=== PATIENT | female | born 1995 | race American Indian/Alaskan Native ===

== ENCOUNTER 2016-09-07 15:07 | Emergency (ER) | payer SELFPAY ==
[2016-09-07 15:15] VITALS: BP 112/71
== END 2016-09-07 23:02 | disposition left against medical advice (07) ==
LOC: ED 15:07
DX: K13.79 Other lesions of oral mucosa (principal); Z53.21 Procedure and treatment not carried out due to patient leaving prior to being seen by health care provider

== ENCOUNTER 2017-03-03 14:34 | Emergency (ER) | payer SELFPAY ==
--- NOTE | 2017-03-03 15:32 | Emergency Department Report ---
Chief Complaint: Vaginal Bleeding Stated Complaint: POSSIBLE MISCARRIAGE Time Seen by Provider: 03/03/17 15:16 - HPI History of Present Illness: Patient is a 21 year-old who presents to ED complaining of vaginal bleeding 2 days. Patient states bleeding has worsened today. She states she has confirmed 2 weeks ago at a clinic patient states she does not recall her last was her period. She denies fevers/chills/nausea/vomiting/chest pain/shortness of breath or any other problems - ROS Review of Systems: As noted in HPI - Exam Vital Signs: Vital Signs 03/03/17 14:46 Temperature 99.3 F Pulse Rate 94 H Respiratory 16 Rate Blood Pressure 116/71 O2 Sat by Pulse 100 Oximetry Physical Exam: GENERAL: Alert and oriented x3, no apparent distress, Normal Gait, atraumatic. ABDOMEN: No organomegaly was noted,Positive bowel sounds, soft, and non- distended. . Nontender to palpation on all Quadrants, NO CVA tenderness. SKIN: Warm and dry, No lesions, No ulceration or induration present. MSE screening note: Focused history and physical exam performed. Due to findings the following was ordered: ED Medical Decision Making - Medical Decision Making Vaginal bleed protocol ordered. Patient's receiving by ED physician ED Disposition for MSE Condition: Stable
[2017-03-03 16:53] LABS: Bilirubin,Urine Negative (Negative); Ketones,Urine Negative (Negative)
[2017-03-03 16:54] LABS: Blood,Urine Moderate (Negative); Leukocyte Esterase,Urine Negative (Negative); Nitrite,Urine Negative (Negative); Protein,Urine <15 mg/dL mg/dL (Negative); Urobilinogen,Urine < 2.0 mg/dL (<2.0)
[2017-03-03 17:18] LABS: Basophils % (Auto) 0.9 % (0.0-1.8); Eosinophils % (Auto) 6.6 % (0.0-4.3); Hematocrit 38.8 % (30.3-42.9); Hemoglobin 12.6 gm/dl (10.1-14.3); Mean Corpuscular HGB Conc 33 % (30-34); Mean Corpuscular Hemoglobin 26 pg (28-32); Mean Corpuscular Volume 78 fl (79-97); Platelet Count 295 K/mm3 (140-440); Red Blood Count 4.95 M/mm3 (3.65-5.03); Red Cell Distribution Width 15.8 % (13.2-15.2)
[2017-03-03 18:15] LABS: Alanine Aminotransferase 12 units/L (7-56); Albumin/Globulin Ratio 1.4 %; Alkaline Phosphatase 85 units/L (35-129); Anion Gap 22 mmol/L; BUN/Creatinine Ratio 14; Blood Urea Nitrogen 7 mg/dL (7-17); Calcium 9.6 mg/dL (8.4-10.2); Carbon Dioxide 22 mmol/L (22-30); Chloride 98.4 mmol/L (98-107); Glucose 68 mg/dL (65-100); Potassium 3.7 mmol/L (3.6-5.0); Sodium 139 mmol/L (137-145); Total Protein 8.5 g/dL (6.3-8.2)
[2017-03-03] MEDS ORDERED: ZOFRAN ODT PO ONE (18:57)
[2017-03-03 19:27] VITALS: BP 114/58
[2017-03-03 19:46] LABS: Mucus,Urine FEW /HPF
--- NOTE | 2017-03-03 19:49 | Emergency Department Report ---
ED Female HPI - General Chief complaint: Vaginal Bleeding Stated complaint: POSSIBLE MISCARRIAGE Time Seen by Provider: 03/03/17 15:16 Source: patient Mode of arrival: Ambulatory Limitations: No Limitations - History of Present Illness Initial comments: 21-year-old female with a past smoker history of asthma presents to the hospital currently with complaints of vaginal spotting for several days it increased bleeding today. Positive moderate intermittent cramps without aggravating or alleviating factors. Patient states she had an ultrasound approximately 2.5 weeks ago that showed a 5 week 6 day IUP. Patient never followed up for her repeat visit. She denies nausea, vomiting, lightheadedness, chest pain, shortness of breath, or fever. This is her fourth . She has a history of one miscarriage, one earlier this year , and has one child. - Related Data Allergies Allergy/AdvReac Type Severity Reaction Status Date / Time No Known Allergies Allergy Unverified 09/07/16 15:15 ED Review of Systems ROS: Stated complaint: POSSIBLE MISCARRIAGE Other details as noted in HPI Comment: All other systems reviewed and negative Other: Constitutional: No fevers chills Eyes: No eye pain visual changes ENT: No ear pain or throat pain Neck: Denies pain Respiratory: Denies cough wheezing shortness of breath Cardiovascular: Denies chest pain, palpitations, syncope GI: Denies nausea, vomiting, diarrhea : Denies dysuria Musculoskeletal: Denies back pain, joint swelling Skin: Denies rash, lesions, erythema Neurologic: Denies headache, numbness, weakness Psychiatric: Denies suicidal ideation, hallucinations ED Past Medical Hx - Past Medical History Previous Medical History?: Yes Hx Asthma: Yes - Surgical History Past Surgical History?: No - Social History Smoking Status: Never Smoker Substance Use Type: Marijuana ED Physical Exam - General Limitations: No Limitations - Other Other exam information: General: No limitations, patient is alert in no acute distress Head exam: Atraumatic, normocephalic Eyes exam: Normal appearance ENT: Moist mucous membrane, normal oropharynx Neck exam: Normal inspection, full range of motion, no meningismus nontender Respiratory exam: Clear to auscultation bilateral, no wheezes, rales, crackles Cardiovascular: Normal rate and rhythm, normal heart sounds Abdomen: Soft, nondistended, and nontender, with normal bowel sounds, no rebound, or guarding Extremity: Full range of motion normal inspection no deformity Back: Normal Inspection, full range of motion, no tenderness Neurologic: Alert, oriented x3, cranial nerves intact, no motor or sensory deficit Psychiatric: normal affect, normal mood Skin: Warm, dry, intact ED Course Vital Signs 03/03/17 03/03/17 03/03/17 14:46 17:47 18:00 Temperature 99.3 F Pulse Rate 94 H 92 H Respiratory 16 24 Rate Blood Pressure 116/71 95/65 Blood Pressure [Right] O2 Sat by Pulse 100 100 100 Oximetry 03/03/17 03/03/17 03/03/17 18:15 18:30 18:48 Temperature Pulse Rate 102 H 91 H Respiratory 22 22 Rate Blood Pressure 95/65 100/58 Blood Pressure [Right] O2 Sat by Pulse 100 100 98 Oximetry 03/03/17 19:00 Temperature 97.7 F Pulse Rate 86 Respiratory 18 Rate Blood Pressure Blood Pressure 114/58 [Right] O2 Sat by Pulse 100 Oximetry ED Medical Decision Making - Lab Data Result diagrams: 03/03/17 15:40 03/03/17 15:40 - Medical Decision Making Patient is not anemic. Patient does not report bleeding greater than 1 pad per hour. Patient reports that bleeding is slowing down. She does not require RhoGAM based on blood type. Pt s/o to DR Deal: f/u US, pt is unlikely to continue with . She does not have a primary rag washer MD. She reports previous IUP so less concerned with ectopic - Differential Diagnosis ectopic, threatened miscarriage, incomplete , anemia Critical Care Time: No Critical care attestation.: If time is entered above; I have spent that time in minutes in the direct care of this critically ill patient, excluding procedure time. ED Disposition Clinical Impression: Threatened Disposition: DC-01 TO HOME OR SELFCARE Is pt being admited?: No Does the pt Need Aspirin: No Condition: Stable Instructions: Threatened Miscarriage (ED) Referrals: ANN-MARIE CHARLES MD [Staff Physician] - 2-3 Days
--- NOTE | 2017-03-03 22:10 | Ultrasound Report ---
FINAL REPORT EXAM: US OB TRANSVAGINAL HISTORY: vaginal spotting, + reported preg, hcg Pending TECHNIQUE: Ultrasound obstetrical trans vaginal PRIORS: None. FINDINGS: There is gestational sac within the uterus with the irregular contour There is pole identified measuring 0.34 centimeters corresponding to estimated gestational age of 6 weeks 0 days. On Doppler evaluation no cardiac activity is identified no yolk sac is seen. Right ovary is 4.1 x 2.9 x 3.4 centimeters Left ovary is 3.1 x 1.2 x 1.7 centimeters Noted is a right ovarian cyst with thick guillory measuring 2.5 centimeters No free fluid seen within the cul-de-sac IMPRESSION: pole identified within the uterus. No cardiac activity is identified. Findings are suspicious for demise 2.5 centimeter right ovarian cyst noted
--- NOTE | 2017-03-03 22:43 | Emergency Department Report ---
Blank Doc - Documentation Documentation: Patient refused to wait for her ultrasound results she wanted to go home. She is alert she's oriented 3, able to make sound decision. She wanted to sign AGAINST MEDICAL ADVICE. I reviewed the ultrasound after patient left and he showed a possible demise, a phone call was made to the patient to inform her of the results and the urgent need to follow-up with her valve technician or to come back to the ER. Patient stated that she'll follow-up with her valve technician.
--- NOTE | 2017-03-05 06:41 | Ultrasound Report ---
FINAL REPORT EXAM: US OB < = 14 WEEKS FETUS HISTORY: vaginal spotting, + reported preg, hcg Pending TECHNIQUE: Transabdominal imaging was obtained of the pelvis along with Doppler interrogation of the uterus. FINDINGS: The uterus is anteverted measuring 11.0 cm x 5.6 cm x 8.4 cm. Within the uterus is an irregularly-shaped gestational sac containing an embryo corresponding to a 7 week 2 day IUP. There is no demonstrable heart rate activity. The cervix is closed. The maternal left ovary is normal size contour and echotexture measuring 3.1 cm by 1.2 cm x 1.7 cm. The maternal right ovary measures 4.1 cm x 2.1 cm x 3.4 cm. Within the right ovary is a functional cyst measuring 2.5 cm in diameter. IMPRESSION: demise with retained products of conception, 7 week 2 day IUP.
== END 2017-03-03 21:50 | disposition left against medical advice (07) ==
LOC: ED 14:34
DX: O02.1 Missed abortion (principal); Z3A.01 Less than 8 weeks gestation of pregnancy
CPT/HCPCS: 36415; 76801; 76817; 80053; 81001; 84702; 85025; 86850; 86900; 86901; Q0162